=== PATIENT | female | born 1970 | race African-American/Black ===

== ENCOUNTER 2019-02-22 01:39 | Inpatient (IN) | payer OTHER, MEDICAID ==
[~2019-02-22] VITALS: Ht 177.8 cm; Wt 81.6 kg
[2019-02-22] MEDS ORDERED: VISCOUS LIDOCAINE 2% 15 ML UDC PO ONE (03:30)
[2019-02-22] MEDS ORDERED: MAGNESIUM/ALUMINUM HYDROXIDE/SIMETHICONE 30ML UDC PO ONE (03:30)
[2019-02-22] MEDS ORDERED: ASPIRIN 81MG TABLET PO ONE (03:30)
[2019-02-22 04:09] LABS: BASOPHILS % 0.4 % (0.0-2.0); EOSINOPHILS % 1.3 % (0.0-5.0); HEMATOCRIT. 42.3 % (36.0-48.0); HEMOGLOBIN. 14.5 g/dL (12.0-16.0); LYMPHOCYTES % 23.2 % (20.0-50.0); MEAN CORPUSCULAR HEMOGLOBIN 30.2 pg (28.0-32.0); MEAN CORPUSCULAR VOLUME 88.1 fL (81.0-99.0); MEAN PLATELET VOLUME 8.6 fl (7.4-10.4); MONOCYTES % 4.7 % (2.0-8.0); NEUTROPHILS % 70.4 % (40.0-76.0); PLATELET 265 x1000/uL (130-400); RED CELL DISTRIBUTION WIDTH 12.8 % (11.6-14.6)
[2019-02-22 04:14] LABS: CHLORIDE 107 mEq/L (98-107)
[2019-02-22 08:50] VITALS: BP 141/85
[2019-02-22 09:30] VITALS: BP 141/85
[2019-02-22] MEDS ORDERED: CLONIDINE 0.1MG TABLET PO PRN (10:30)
[2019-02-22] MEDS ORDERED: ENOXAPARIN 40MG/0.4ML SYR SUBCUT SCH (10:30)
[2019-02-22] MEDS ORDERED: KETOROLAC 30MG/ML VIAL IV PRN (10:30)
[2019-02-22] MEDS ORDERED: MAGNESIUM/ALUMINUM HYDROXIDE/SIMETHICONE 30ML UDC PO PRN (10:30)
[2019-02-22] MEDS ORDERED: ONDANSETRON HCL 4MG/2ML INJ IV PRN (10:30)
[2019-02-22] MEDS ORDERED: ACETAMINOPHEN 325MG TABLET PO PRN (10:30)
[2019-02-22] MEDS ORDERED: SIMV40TA5 MT (10:34)
[2019-02-22] MEDS ORDERED: HYDR12.529 MT (10:34)
[2019-02-22] MEDS ORDERED: LISI10TA5 MT (10:34)
[2019-02-22] MEDS ORDERED: METF-416 MT (10:34)
[2019-02-22] MEDS ORDERED: PNV1TABL76 MT (10:34)
[2019-02-22] MEDS ORDERED: ASPI-1159 PO (10:34)
[2019-02-22 12:00] VITALS: BP 102/52
[2019-02-22] MEDS: SODIUM CHLORIDE 0.9% INJ 3ML FLUSH IVF SCH (13:08)
[2019-02-22] MEDS: LISINOPRIL 5MG TABLET PO SCH ×3 (13:15→17:50)
[2019-02-22] MEDS: ISOSORBIDE MONONITRATE 30MG TABLET SR 24HR PO SCH ×2 (13:15→17:50)
[2019-02-22] MEDS ORDERED: CLOPIDOGREL 75MG TABLET PO SCH (13:15)
[2019-02-22] MEDS ORDERED: DEXTROSE 50% WATER 50ML SYRINGE IV PRN (14:45)
[2019-02-22 16:00] VITALS: BP 149/81
[2019-02-22] MEDS ORDERED: METFORMIN HCL 500MG TABLET PO SCH (17:50)
[2019-02-22] MEDS: BLOOD SUGAR DIAGNOSTIC STRIP TEST SCH ×2 (17:57→21:00)
[2019-02-22] MEDS: INSULIN LISPRO 100 UNITS/ML SUBCUT SCH ×2 (19:04→21:00)
[2019-02-22 20:05] VITALS: BP 122/69
[2019-02-22] MEDS ORDERED: METOPROLOL TARTRATE 25MG TABLET PO SCH (21:00)
[2019-02-22] MEDS ORDERED: ATORVASTATIN CALCIUM 40MG TABLET PO SCH (21:00)
[2019-02-23 00:11] VITALS: BP 114/70
[2019-02-23 04:20] VITALS: BP 102/49
[2019-02-23] MEDS: SODIUM CHLORIDE 0.9% INJ 3ML FLUSH IVF SCH ×2 (05:29→05:30)
[2019-02-23 08:00] VITALS: BP 124/66
[2019-02-23] MEDS ORDERED: ASPIRIN 81MG EC TABLET PO SCH (09:00)
[2019-02-23 12:00] VITALS: BP 124/60
[2019-02-23] MEDS ORDERED: REGADENOSON 0.4 MG/5 ML IV NR (12:00)
[2019-02-23] MEDS ORDERED: REGADENOSON 0.4 MG/5 ML IV ONE (12:04)
[2019-02-23 14:53] VITALS: BP 124/60
== END 2019-02-23 15:40 | disposition home or self-care (01) | DRG 198 ==
LOC: ER 01:39 → 6WST 05:12 → EDBEDREQTM 05:14 → EDBEDREQ 05:14 → ENRESERV 08:04 → 6WST 09:07
PROVIDERS: ADMIT Internal Medicine; ATTEND Internal Medicine
DX: R07.89 Other chest pain (principal); I24.9 Acute ischemic heart disease, unspecified; E11.9 Type 2 diabetes mellitus without complications; I25.10 Atherosclerotic heart disease of native coronary artery without angina pectoris; E66.9 Obesity, unspecified; E78.00 Pure hypercholesterolemia, unspecified; E78.5 Hyperlipidemia, unspecified; I10 Essential (primary) hypertension; F17.210 Nicotine dependence, cigarettes, uncomplicated; I25.2 Old myocardial infarction; Z98.891 History of uterine scar from previous surgery; Z90.49 Acquired absence of other specified parts of digestive tract
CPT/HCPCS: 36415; 71045; 78452; 80061; 82962; 83036; 83880; 84484; 85379; 93005; 93017; 93306; 93970; 99285; A9500; J1650; J1815; J1885; J2405; J2785

== ENCOUNTER 2019-03-01 20:14 | Inpatient (IN) | payer OTHER, MEDICAID ==
[~2019-03-01] VITALS: Ht 177.8 cm; Wt 94.3 kg
[~2019-03-01 20:14] MED LIST: ASPI-1159 PO; HYDR12.529 MT; LISI10TA5 MT; METF-416 MT; PNV1TABL76 MT; SIMV40TA5 MT
[2019-03-01] MEDS ORDERED: ONDANSETRON HCL 4MG/2ML INJ IV STA (22:38)
[2019-03-01] MEDS ORDERED: MORPHINE SULFATE 4 MG/ML CPJ (NOT FOR IM USE) IV STA (22:38)
[2019-03-01] MEDS ORDERED: NITROGLYCERIN OINT 1GM/INCH UDPKT TD ONE (22:45)
[2019-03-01] MEDS ORDERED: ASPIRIN 81MG TABLET PO ONE (22:45)
[2019-03-01 23:01] LABS: BASOPHILS % 0.5 % (0.0-2.0); EOSINOPHILS % 0.3 % (0.0-5.0); HEMATOCRIT. 42.6 % (36.0-48.0); HEMOGLOBIN. 14.9 g/dL (12.0-16.0); LYMPHOCYTES % 17.8 % (20.0-50.0); MEAN CORPUSCULAR HEMOGLOBIN 30.3 pg (28.0-32.0); MEAN CORPUSCULAR VOLUME 86.7 fL (81.0-99.0); MEAN PLATELET VOLUME 8.8 fl (7.4-10.4); MONOCYTES % 4.8 % (2.0-8.0); NEUTROPHILS % 76.6 % (40.0-76.0); PLATELET 299 x1000/uL (130-400); RED BLOOD CELL COUNT 4.91 mill/uL (4.2-5.4); RED CELL DISTRIBUTION WIDTH 12.2 % (11.6-14.6)
[2019-03-01 23:02] LABS: CHLORIDE 102 mEq/L (98-107)
[2019-03-01] MEDS ORDERED: ENOXAPARIN 100MG/ML SYR SUBCUT ONE (23:30)
[2019-03-01] MEDS ORDERED: NITROGLYCERIN 50MG PREMIX 250 ML IV SCH (23:45)
[2019-03-02] VITALS (73 sets, daily range): BP systolic 101–192; BP diastolic 37–122
[2019-03-02] MEDS ORDERED: IOHEXOL-350 100 ML BOTTLE ONE (00:54)
[2019-03-02] MEDS ORDERED: MORPHINE SULFATE 4 MG/ML CPJ (NOT FOR IM USE) IV SCH (01:30)
[2019-03-02] MEDS ORDERED: NITROGLYCERIN 50MG PREMIX 250 ML IV PRN (01:42)
[2019-03-02] MEDS ORDERED: DEXTROSE 50% WATER 50ML SYRINGE IV PRN (03:30)
[2019-03-02] MEDS ORDERED: LORAZEPAM 2MG/ML CPJ IV PRN (03:30)
[2019-03-02 05:39] LABS: BASOPHILS % 0.5 % (0.0-2.0); EOSINOPHILS % 0.5 % (0.0-5.0); HEMATOCRIT. 43.1 % (36.0-48.0); HEMOGLOBIN. 14.8 g/dL (12.0-16.0); LYMPHOCYTES % 21.7 % (20.0-50.0); MEAN CORPUSCULAR HEMOGLOBIN 29.9 pg (28.0-32.0); MEAN CORPUSCULAR VOLUME 87.3 fL (81.0-99.0); MEAN PLATELET VOLUME 9.1 fl (7.4-10.4); MONOCYTES % 5.5 % (2.0-8.0); NEUTROPHILS % 71.8 % (40.0-76.0); PLATELET 268 x1000/uL (130-400); RED BLOOD CELL COUNT 4.94 mill/uL (4.2-5.4); RED CELL DISTRIBUTION WIDTH 12.4 % (11.6-14.6)
[2019-03-02 06:21] LABS: CHLORIDE 103 mEq/L (98-107)
[2019-03-02] MEDS ORDERED: ACETAMINOPHEN 325MG TABLET PO PRN ×2 (06:30→12:00)
[2019-03-02] MEDS ORDERED: IPRATROPIUM/ALBUTEROL 0.5-3(2.5)MG/3ML NEB INH PRN (06:30)
[2019-03-02] MEDS ORDERED: CLONIDINE 0.1MG TABLET PO PRN (06:30)
[2019-03-02] MEDS ORDERED: MAGNESIUM/ALUMINUM HYDROXIDE/SIMETHICONE 30ML UDC PO PRN (06:30)
[2019-03-02] MEDS ORDERED: GUAIFENESIN 200MG/10ML SUGAR FREE UDC PO PRN (06:30)
[2019-03-02] MEDS ORDERED: DIPHENHYDRAMINE 50MG/ML VIAL IV PRN (06:30)
[2019-03-02] MEDS ORDERED: DOCUSATE SODIUM 100MG CAPSULE PO PRN (06:30)
[2019-03-02] MEDS ORDERED: ONDANSETRON HCL 4MG/2ML INJ IV PRN ×2 (06:30→12:00)
[2019-03-02] MEDS ORDERED: HYDRALAZINE 20MG/ML VIAL IV PRN (06:30)
[2019-03-02 06:38] LABS: CREATINE KINASE 535 IU/L (26-192)
[2019-03-02 06:41] LABS: CREATINE KINASE MB FRACTION 65.5 ng/mL (0.5-3.6)
[2019-03-02] MEDS ORDERED: LEVOFLOXACIN 500MG PREMIX 100 ML IV SCH (08:00)
[2019-03-02] MEDS ORDERED: ASPIRIN 325MG EC TABLET PO NR (08:00)
[2019-03-02] MEDS ORDERED: SODIUM CHLORIDE 0.45% 1,000 ML IV ONE (08:15)
[2019-03-02] MEDS: HYDROCODONE/ACETAMINOPHEN 10/325MG TABLET PO PRN ×2 (08:21→14:21)
[2019-03-02] MEDS: METOPROLOL TARTRATE 25MG TABLET PO SCH ×2 (08:21→21:17)
[2019-03-02] MEDS: BLOOD SUGAR DIAGNOSTIC STRIP TEST SCH ×4 (08:35→21:17)
[2019-03-02] MEDS: INSULIN LISPRO 100 UNITS/ML SUBCUT SCH ×5 (08:42→21:18)
[2019-03-02] MEDS ORDERED: METOPROLOL TARTRATE 5MG/5ML VIAL IV NR (09:00)
[2019-03-02] MEDS ORDERED: ASPIRIN 81MG EC TABLET PO SCH (09:00)
[2019-03-02] MEDS ORDERED: NA PHOS,M-B/NA PHOS,DI-BA ENEMA 118ML PR PRN (09:00)
[2019-03-02] MEDS ORDERED: IODIXANOL 320MG/ML 100 ML BOTTLE IV ONE ×2 (09:38→10:38)
[2019-03-02] MEDS ORDERED: LIDOCAINE HCL 1% 20ML VIAL (Pyxis) INJ ONE (09:38)
[2019-03-02] MEDS ORDERED: IOHEXOL-300 100 ML BOTTLE ONE (09:38)
[2019-03-02] MEDS ORDERED: FENTANYL CITRATE/PF 50MCG/ML 2ML VIAL ONE (10:04)
[2019-03-02] MEDS ORDERED: MIDAZOLAM HCL 2 MG/2 ML VIAL ONE (10:04)
[2019-03-02] MEDS ORDERED: CLOPIDOGREL 75MG TABLET ONE (11:06)
[2019-03-02] MEDS ORDERED: ASPIRIN/SOD BICARB/CITRIC ACID 324MG TAB EFF ONE (11:06)
[2019-03-02] MEDS ORDERED: ATROPINE SULFATE 1MG/10ML SYR IV PRN (12:00)
[2019-03-02] MEDS ORDERED: MORPHINE SULFATE 2 MG/ML CPJ (NOT FOR IM USE) IV PRN (12:00)
[2019-03-02] MEDS ORDERED: CLOPIDOGREL 75MG TABLET PO ONE (12:00)
[2019-03-02] MEDS: SODIUM CHLORIDE 0.45% 1,000 ML IV ONE ×2 (12:17→13:38)
[2019-03-02 12:27] LABS: HEPATITIS B SURFACE ANTIGEN NEGATIVE
[2019-03-02 12:55] LABS: HEPATITIS A AB IGM NEGATIVE (NEGATIVE)
[2019-03-02] MEDS ORDERED: NICARDIPINE 100MCG/ML 10ML VIAL (CATH LAB) IV ONE (13:32)
[2019-03-02] MEDS ORDERED: NITROGLYCERIN 50MCG/ML 10ML VIAL (CATH LAB) IV ONE (13:32)
[2019-03-02] MEDS ORDERED: HEPARIN SODIUM 1,000 UNIT/1ML VIAL IV ONE (13:32)
[2019-03-02] MEDS ORDERED: PHENYLEPHRINE 100MCG/ML 10ML VIAL (CATH LAB) IV ONE (13:32)
[2019-03-02] MEDS: LEVOFLOXACIN 500MG PREMIX 100 ML IV SCH (13:38)
[2019-03-02] MEDS: SODIUM CHLORIDE 0.9% INJ 3ML FLUSH IVF SCH ×2 (14:22→22:06)
[2019-03-02 15:43] LABS: *AMPHETAMINES SCREEN URINE NEGATIVE (NEGATIVE)
[2019-03-02 15:44] LABS: *BARBITURATES SCREEN URINE NEGATIVE (NEGATIVE); *BENZODIAZEPINES SCREEN URINE PRESUMTIVE POSITIVE (NEGATIVE); *COCAINE SCREEN URINE NEGATIVE (NEGATIVE); METHADONE URINE SCREEN NEGATIVE (NEGATIVE); OPIATES URINE SCREEN PRESUMTIVE POSITIVE (NEGATIVE); PHENCYCLIDINE URINE SCREEN NEGATIVE (NEGATIVE)
[2019-03-02 15:45] LABS: CANNABINOID URINE SCREEN NEGATIVE (NEGATIVE)
[2019-03-02] MEDS: NEBIVOLOL HCL 5 MG TABLET PO SCH (21:16)
[2019-03-02] MEDS: ATORVASTATIN CALCIUM 20MG TABLET PO SCH (21:17)
[2019-03-02] MEDS: MORPHINE SULFATE 4 MG/ML CPJ (NOT FOR IM USE) IV PRN (21:51)
[2019-03-03] VITALS (35 sets, daily range): BP systolic 85–137; BP diastolic 50–91
[2019-03-03] MEDS ORDERED: ENOXAPARIN 40MG/0.4ML SYR SUBCUT SCH
[2019-03-03 05:52] LABS: BASOPHILS % 0.2 % (0.0-2.0); EOSINOPHILS % 1.4 % (0.0-5.0); HEMATOCRIT. 40.2 % (36.0-48.0); HEMOGLOBIN. 13.7 g/dL (12.0-16.0); LYMPHOCYTES % 24.9 % (20.0-50.0); MEAN CORPUSCULAR VOLUME 88.3 fL (81.0-99.0); MEAN PLATELET VOLUME 9.2 fl (7.4-10.4); MONOCYTES % 7.6 % (2.0-8.0); NEUTROPHILS % 65.9 % (40.0-76.0); PLATELET 251 x1000/uL (130-400); RED BLOOD CELL COUNT 4.56 mill/uL (4.2-5.4); RED CELL DISTRIBUTION WIDTH 12.3 % (11.6-14.6)
[2019-03-03 05:56] LABS: CHLORIDE 105 mEq/L (98-107)
[2019-03-03] MEDS: SODIUM CHLORIDE 0.9% INJ 3ML FLUSH IVF SCH ×3 (06:01→20:59)
[2019-03-03 06:14] LABS: LDL CHOLESTEROL 109 mg/dL (5-100)
[2019-03-03 06:15] LABS: CREATINE KINASE MB FRACTION 14.3 ng/mL (0.5-3.6)
[2019-03-03 06:16] LABS: CREATINE KINASE 231 IU/L (26-192)
[2019-03-03 06:20] LABS: HDL CHOLESTEROL 46 mg/dL (40-59)
[2019-03-03] MEDS: ASPIRIN 325MG TABLET PO SCH (08:33)
[2019-03-03] MEDS: BLOOD SUGAR DIAGNOSTIC STRIP TEST SCH ×4 (08:33→20:59)
[2019-03-03] MEDS: CLOPIDOGREL 75MG TABLET PO SCH (08:33)
[2019-03-03] MEDS: INSULIN LISPRO 100 UNITS/ML SUBCUT SCH ×4 (08:48→20:54)
[2019-03-03] MEDS: NEBIVOLOL HCL 5 MG TABLET PO SCH ×2 (09:00→20:43)
[2019-03-03] MEDS: LOSARTAN POTASSIUM 25 MG TABLET PO SCH (11:00)
[2019-03-03] MEDS: LEVOFLOXACIN 500MG PREMIX 100 ML IV SCH (12:50)
[2019-03-03] MEDS: ATORVASTATIN CALCIUM 20MG TABLET PO SCH (20:53)
[2019-03-03] MEDS: MORPHINE SULFATE 4 MG/ML CPJ (NOT FOR IM USE) IV PRN (22:45)
[2019-03-04] VITALS (8 sets, daily range): BP systolic 106–129; BP diastolic 61–81
[2019-03-04] MEDS: HYDROCODONE/ACETAMINOPHEN 10/325MG TABLET PO PRN (04:17)
[2019-03-04 06:12] LABS: BASOPHILS % 0.4 % (0.0-2.0); EOSINOPHILS % 1.5 % (0.0-5.0); HEMATOCRIT. 38.8 % (36.0-48.0); HEMOGLOBIN. 13.5 g/dL (12.0-16.0); LYMPHOCYTES % 20.4 % (20.0-50.0); MEAN CORPUSCULAR HEMOGLOBIN 30.3 pg (28.0-32.0); MEAN CORPUSCULAR VOLUME 87.3 fL (81.0-99.0); MEAN PLATELET VOLUME 8.7 fl (7.4-10.4); MONOCYTES % 6.5 % (2.0-8.0); NEUTROPHILS % 71.2 % (40.0-76.0); PLATELET 243 x1000/uL (130-400); RED BLOOD CELL COUNT 4.45 mill/uL (4.2-5.4); RED CELL DISTRIBUTION WIDTH 12.2 % (11.6-14.6)
[2019-03-04] MEDS: SODIUM CHLORIDE 0.9% INJ 3ML FLUSH IVF SCH ×2 (06:12→13:19)
[2019-03-04 06:24] LABS: CHLORIDE 105 mEq/L (98-107)
[2019-03-04] MEDS: BLOOD SUGAR DIAGNOSTIC STRIP TEST SCH ×2 (06:39→11:50)
[2019-03-04] MEDS: ASPIRIN 325MG TABLET PO SCH (08:14)
[2019-03-04] MEDS: CLOPIDOGREL 75MG TABLET PO SCH (08:14)
[2019-03-04] MEDS: NEBIVOLOL HCL 5 MG TABLET PO SCH (08:15)
[2019-03-04] MEDS: INSULIN LISPRO 100 UNITS/ML SUBCUT SCH ×2 (08:15→13:18)
[2019-03-04] MEDS: LOSARTAN POTASSIUM 25 MG TABLET PO SCH (08:16)
[2019-03-04] MEDS: LEVOFLOXACIN 500MG PREMIX 100 ML IV SCH (13:17)
== END 2019-03-04 15:30 | disposition home or self-care (01) | DRG 174 ==
LOC: ER 20:14 → CVICU 23:30 → EDBEDREQSVC 23:33 → EDBEDREQTM 23:33 → EDBEDREQ 23:33 → ENRESERV 03-02 00:04 → 3WST 03-03 14:10
PROVIDERS: ADMIT Internal Medicine; ATTEND Internal Medicine
PROC: 4A023N7 Measurement of Cardiac Sampling and Pressure, Left Heart, Percutaneous Approach (ICD-10-PCS; principal; 2019-03-02)
PROC: 027035Z Dilation of Coronary Artery, One Artery with Two Drug-eluting Intraluminal Devices, Percutaneous Approach (ICD-10-PCS; 2019-03-02)
PROC: B2151ZZ Fluoroscopy of Left Heart using Low Osmolar Contrast (ICD-10-PCS; 2019-03-02)
PROC: B2111ZZ Fluoroscopy of Multiple Coronary Arteries using Low Osmolar Contrast (ICD-10-PCS; 2019-03-02)
PROC: 4A033BC Measurement of Arterial Pressure, Coronary, Percutaneous Approach (ICD-10-PCS; 2019-03-02)
DX: I21.4 Non-ST elevation (NSTEMI) myocardial infarction (principal); I11.0 Hypertensive heart disease with heart failure; R65.10 Systemic inflammatory response syndrome (SIRS) of non-infectious origin without acute organ dysfunction; I95.9 Hypotension, unspecified; I50.9 Heart failure, unspecified; E11.9 Type 2 diabetes mellitus without complications; D72.829 Elevated white blood cell count, unspecified; E78.00 Pure hypercholesterolemia, unspecified; R74.0 Nonspecific elevation of levels of transaminase and lactic acid dehydrogenase [LDH]; E78.5 Hyperlipidemia, unspecified; F17.200 Nicotine dependence, unspecified, uncomplicated; I25.10 Atherosclerotic heart disease of native coronary artery without angina pectoris; Z82.49 Family history of ischemic heart disease and other diseases of the circulatory system; Z98.891 History of uterine scar from previous surgery; Z88.6 Allergy status to analgesic agent; Z79.82 Long term (current) use of aspirin; Z79.84 Long term (current) use of oral hypoglycemic drugs; Z79.899 Other long term (current) drug therapy; Z90.49 Acquired absence of other specified parts of digestive tract
CPT/HCPCS: 36415; 71045; 71275; 76700; 80048; 80061; 80305; 82550; 82553; 82962; 83036; 83605; 83735; 83880; 84443; 84484; 85347; 85379; 86705; 86709; 86803; 87340; 92928; 93005; 93306; 93458; 93571; 96374; 96375; 99291; 99406; C1725; C1769; C1874; C1887; C1893; J1644; J1650; J1815; J1956; J2060; J2250; J2270; J2370; J2405; J3010; J3490; J7040; J7050; Q9967

== ENCOUNTER 2019-11-09 13:57 | Emergency (ER) | payer MEDICAID ==
[~2019-11-09] VITALS: Ht 177.8 cm; Wt 93.0 kg
[~2019-11-09 13:57] MED LIST changes: -ASPI-1159 PO; +ASPI-1497 PO; +SIMV-46 MT; -SIMV40TA5 MT
[2019-11-09 14:10] VITALS: BP 157/83
== END 2019-11-09 20:45 | disposition left against medical advice (07) ==
LOC: ER 13:57
DX: R06.02 Shortness of breath (principal); Z53.21 Procedure and treatment not carried out due to patient leaving prior to being seen by health care provider
CPT/HCPCS: 93005

== ENCOUNTER 2021-12-24 07:17 | Emergency (ER) | payer MEDICAID, OTHER ==
[~2021-12-24] VITALS: Ht 167.6 cm; Wt 77.0 kg
[~2021-12-24 07:17] MED LIST changes: +LISI10TA26 MT; -LISI10TA5 MT
[2021-12-24 08:31] LABS: BASOPHILS % 0.6 % (0.0-2.0); EOSINOPHILS % 2.5 % (0.0-5.0); HEMATOCRIT. 41.1 % (36.0-48.0); HEMOGLOBIN. 14.6 g/dL (12.0-16.0); LYMPHOCYTES % 21.2 % (20.0-50.0); MEAN CORPUSCULAR HEMOGLOBIN 29.7 pg (28.0-32.0); MEAN CORPUSCULAR VOLUME 83.8 fL (81.0-99.0); MEAN PLATELET VOLUME 8.4 fl (7.4-10.4); MONOCYTES % 6.4 % (2.0-8.0); NEUTROPHILS % 69.3 % (40.0-76.0); PLATELET 211 x1000/uL (130-400); RED BLOOD CELL COUNT 4.91 mill/uL (4.2-5.4); RED CELL DISTRIBUTION WIDTH 12.6 % (11.6-14.6)
[2021-12-24 08:38] LABS: CHLORIDE 110 mEq/L (98-107)
[2021-12-24 16:00] VITALS: BP 125/62
== END 2021-12-24 17:44 | disposition left against medical advice (07) ==
LOC: ER 07:17 → CANBEDREQ 22:45
DX: R07.2 Precordial pain (principal); I10 Essential (primary) hypertension; I25.10 Atherosclerotic heart disease of native coronary artery without angina pectoris; I25.2 Old myocardial infarction; Z95.5 Presence of coronary angioplasty implant and graft; Z88.5 Allergy status to narcotic agent; Z79.82 Long term (current) use of aspirin; Z79.84 Long term (current) use of oral hypoglycemic drugs; Z79.899 Other long term (current) drug therapy
CPT/HCPCS: 36415; 71045; 80053; 83880; 84484; 85025; 87426; 93005; 99285